=== PATIENT | male | born 2000 | race Caucasian/White ===

== ENCOUNTER 2019-09-28 14:59 | Inpatient (IN) ==
[2019-09-28 16:54] LABS: Basophils # (auto) 0.01 K/uL (0-0.2); Basophils % (auto) 0.1 %; Eosinophils # (auto) 0.11 K/uL (0-0.5); Eosinophils % (auto) 1.5 %; Hematocrit (blood only) 45.6 % (42-52); Hemoglobin 15.8 g/dL (14.0-18.0); Immature Granulocytes # (auto) 0.01 K/uL (0.00-0.02); Immature Granulocytes % (auto) 0.1 %; Lymphocytes # (auto) 2.27 K/uL (1.2-3.4); Lymphocytes % (auto) 30.8 %; Mean Corpuscular Hgb Conc 34.6 g/dL (32-36); Mean Corpuscular Volume 89.4 fL (80-100); Mean Platelet Volume 9.7 fL (7.4-10.4); Monocytes # (auto) 0.49 K/uL (0.11-0.59); Monocytes % (auto) 6.6 %; Neutrophils # (auto) 4.48 K/uL (1.4-6.5); Neutrophils % (auto) 60.9 %; Platelet Count 236 K/uL (130-400); RDW Coefficient of Variation 12.9 % (11.5-14.5); RDW Standard Deviation 42.4 fL (36.4-46.3); White Blood Count 7.37 K/uL (4.8-10.8)
[2019-09-28 17:12] LABS: Albumin Level 4.3 gm/dl (3.4-5.0); BUN Creatinine Ratio 17.4 (10-20); Calcium 9.5 mg/dl (8.5-10.1); Creatinine Clr Calc Pharmacy 97.6 ml/min; Est GFR (African American) 118.4; Est GFR (Non-African American) 102.2
[2019-09-28 17:22] LABS: Acetaminophen < 2 ug/ml (10-30); Albumin Globulin Ratio 1.3 (0.9-2); Bilirubin,Total 0.7 mg/dl (0.2-1); Globulin 3.4 gm/dl (2.5-4.0); Salicylate 2.3 mg/dl (2.8-20); Thyroid Stimulating Hormone 0.915 uIu/ml (0.300-4.500); Total Protein 7.7 gm/dl (6.4-8.2)
[2019-09-28 17:48] LABS: Appearance Urine Clear (Clear); Bilirubin Urine Negative (Negative); Blood Urine Negative (Negative); Color Urine Yellow; Glucose Urine UA Negative (Negative); Ketones Urine 2+ (Negative); Leukocyte Esterase Urine Negative (Negative); Nitrite Urine Negative (Negative); Protein Urine Negative (Negative); Urobilinogen Urine Negative (Negative); pH Urine 6.5 (4.5-7.5)
[2019-09-28 18:25] LABS: Amphetamines+Metham, Urine Neg (Neg); Barbiturates, Urine Neg (Neg); Benzodiazepine, Urine Neg (Neg); Cocaine, Urine Neg (Neg); MDMA (Ecstacy), Urine Neg (Neg); Methadone, Urine Neg (Neg); Opiate, Urine Neg (Neg); Phencyclidine, Urine Neg (Neg)
[2019-09-28] MEDS ORDERED: HYOSCYAMINE SULFATE 0.125 MG TAB PO STA (20:17)
--- NOTE | 2019-09-28 20:33 | Emergency Department Note ---
Entered by Shanell Soria acting as a scribe for History of Present Illness General Chief complaint: Mental Health Evaluation Stated complaint: ANXIETY,SCHIZOPHRENIA SYMPTOMS Time Seen by Provider: 09/28/19 15:17 Source: patient Mode of arrival: ambulatory Limitations: no limitations History of Present Illness Provider complaint: Mental health evaluation Onset (ago): day(s) (this week) Location: head Pain Consistency: + other (worsening) Maximum Pain Intensity: 0 Quality: + other (depression) Associated symptoms: + loss of appetite and + other (Additional symptoms: dehy dration, poor sleep, abdominal pain secondary to IBS) Treatments prior to arrival: none The patient is a 19 year old male with a history of IBS and depression who presents to the Emergency Room with complaints of worsening depression starting this week. The patient reports that his girlfriend's sister had a schizophrenic episode this past weekend, so he brought her to the ED. He states that many of her symptoms reflected his own and made him think about his own psychological problems. He notes that he subsequently went to [facility] because he w anted to talk to someone, and he indicates that they were adamant that he come to the ED for further evaluation. The patient currently complains of having a poor appetite, dehydration, and poor sleep secondary to nightmares. He mentions that he has tried smoking marijuana and using CBD to help him sleep. He adds that he often smokes marijuana wrapped in tobacco, vapes, and occasionally uses acid to calm himself down. He recalls that he last used acid several months ago. The patient also reports that his stomach sometimes becomes upset secondary to his IBS and that he experienced an infection after he had cysts removed from his face. He otherwise denies any recent sickness and injuries. He states that he does not use any regular medications. Home Medications Home Medications Medication Instructions Recorded Confirmed Type dicyclomine 10 mg PO QID 05/28/18 09/28/19 History hyoscyamine sulfate 0.125 mg PO BID PRN 05/28/18 09/28/19 History famotidine 20 mg PO DAILY 09/28/19 09/28/19 History Allergies Allergy/AdvReac Type Severity Reaction Status Date / Time pickle Allergy Swelling Uncoded 09/28/19 17:24 of Lip/Tongue/Throat Past Med/Surg History Medical History Depression (Acute) Head injury (Inactive) IBS (irritable bowel syndrome) Laceration of scalp (Inactive) No acute medical problems Social History Preferred Language: Upper Sorbian Communication Ability: Effective Beliefs That Will Affect Care: None current occupational status: student Feels Safe at Home: Yes Smoking Status: Current every day smoker Hx Alcohol Use: Yes Review of Systems See HPI for pertinent positives & negatives. and A total of 10 systems reviewed and were otherwise negative Physical Exam Vital Signs Vital Signs - 24 hr 09/28/19 15:02 09/28/19 17:00 09/28/19 20:30 Temperature 97.7 F Temperature Source Oral Pulse Rate 65 Pulse Rate [Radial] 77 82 Pulse Rhythm [Radial] Regular Regular Respiratory Rate 18 16 20 Respiratory Effort / Characteristics Non-Labored Spontaneous Non-Labored Spontaneous Non-Labored Respiratory Depth Normal Normal Normal Respiratory Pattern Regular Regular Regular Blood Pressure 149/93 H Blood Pressure [Right Arm] 114/81 134/85 Blood Pressure Mean 111 Blood Pressure Mean [Right Arm] 92 101 Blood Pressure Position Sitting Pulse Oximetry 96 98 98 Oxygen Delivery Method Room Air Room Air Room Air Sepsis Recent Fever Within 48 Hours No Sepsis New/Unexplained Change in Mental Status No Sepsis Action Taken by Nursing No Action Required GENERAL: alert, well nourished, non-toxic, anxious and tearful EYE EXAM: normal conjunctiva, PERRL and EOM's grossly intact OROPHARYNX: no exudate, no erythema, lips, buccal mucosa, and tongue normal and mucous membranes are moist NECK: supple, no nuchal rigidity, no adenopathy, non-tender LUNGS: Clear to auscultation. Normal chest wall mechanics HEART: no murmurs, S1 normal and S2 normal ABDOMEN: abdomen soft, non-tender, normo-active bowel sounds, no masses, no rebound or guarding. BACK: Back is symmetrical on inspection and there is no deformity, no midline tenderness, no CVA tenderness. SKIN: no rashes and no bruising UPPER EXTREMITIES: upper extremities are grossly normal. FROM, nml pulses b/l. LOWER EXTREMITIES: No pitting edema. FROM, nml pulses b/l. NEURO EXAM: Normal sensorium, cranial nerves II-XII grossly intact, normal speech, no gross weakness of arms, no gross weakness of legs. No drift. Finger to nose intact. Gross sensation intact. Course Course 1523: The patient was evaluated in room A10, and a complete history and physical examination were performed. 2017: Patient seen and evaluated by psychiatric child welfare caseworker. 2220: I spoke to the child welfare caseworker and the patient has been accepted to [address] [place] [address]. 2236: I reevaluated the patient and he is now tearful and concerned about being admitted. Administered Medications Dicyclomine HCl (Bentyl) 10 mg PO QID [facility] Stop: 10/29/19 08:59 Last Admin: 09/30/19 21:23 Dose: 10 mg Documented by: [id number] Admin: 09/30/19 17:22 Dose: 10 mg Documented by: [id number] Admin: 09/30/19 13:23 Dose: 10 mg Documented by: [id number] Admin: 09/30/19 08:45 Dose: 10 mg Documented by: [id number] Admin: 09/29/19 21:10 Dose: 10 mg Documented by: [id number] Admin: 09/29/19 17:22 Dose: 10 mg Documented by: [id number] Admin: 09/29/19 12:46 Dose: 10 mg Documented by: [id number] Admin: 09/29/19 08:01 Dose: 10 mg Documented by: [id number] Famotidine (Pepcid) 20 mg PO QAM [facility] Stop: 10/29/19 08:59 Last Admin: 09/30/19 08:45 Dose: 20 mg Documented by: [id number] Admin: 09/29/19 08:01 Dose: 20 mg Documented by: [id number] Magnesium Hydroxide (Milk Of Magnesia) 30 ml PO DAILY PRN PRN Reason: Constipation Stop: 10/28/19 23:00 Last Admin: 09/28/19 23:52 Dose: 30 ml Documented by: [id number] Mirtazapine (Remeron) 15 mg PO HS [facility] Stop: 10/29/19 21:59 Last Admin: 09/30/19 21:22 Dose: 15 mg Documented by: [id number] Admin: 09/29/19 21:10 Dose: 15 mg Documented by: [id number] Nicotine Polacrilex (Nicorette 2mg) 2 piece MT PRN PRN PRN Reason: Cravings Stop: 10/29/19 18:06 Last Admin: 03/01/20 19:58 Dose: 2 piece Documented by: [id number] Admin: 09/30/19 15:34 Dose: 2 piece Documented by: [id number] Admin: 09/30/19 11:02 Dose: 2 piece Documented by: [id number] Admin: 09/29/19 21:11 Dose: 2 piece Documented by: [id number] Admin: 09/29/19 18:19 Dose: 2 piece Documented by: [id number] Discontinued Medications Hyoscyamine (Levsin) 0.125 mg PO NOW STA Stop: 09/28/19 20:18 Last Admin: 09/28/19 20:24 Dose: 0.125 mg Documented by: [id number] Medical Decision Making Differential Diagnosis Differential diagnosis: Etiologies such as mood disorder, infection, hypoglycemia, electrolyte abnormalities, cardiac sources, intracerebral event, toxicologic, neurologic, as well as others were entertained. Medical Records Attestation: I reviewed the patient's medical records. Home Medications Current Medication List: was personally reviewed by me Laboratory Data Attestation: I reviewed the patient's lab results. Result diagrams: 09/28/19 16:29 09/28/19 16:29 Lab Results 09/28/19 09/28/19 09/28/19 Range/Units 16:29 16:29 16:29 WBC 7.37 (4.8-10.8) K/uL RBC 5.10 (4.7-6.1) M/uL Hgb 15.8 (14.0-18.0) g/dL Hct 45.6 (42-52) % MCV 89.4 (80-100) fL MCH 31.0 (25-34) pg MCHC 34.6 (32-36) g/dL RDW Std Deviation 42.4 (36.4-46.3) fL RDW Coeff of Arjun 12.9 (11.5-14.5) % Plt Count 236 (130-400) K/uL MPV 9.7 (7.4-10.4) fL Immature Gran % (Auto) 0.1 % Neut % (Auto) 60.9 % Lymph % (Auto) 30.8 % Jackson % (Auto) 6.6 % Eos % (Auto) 1.5 % Baso % (Auto) 0.1 % Immature Gran # (Auto) 0.01 (0.00-0.02) K/uL Neut # (Auto) 4.48 (1.4-6.5) K/uL Lymph # (Auto) 2.27 (1.2-3.4) K/uL Jackson # (Auto) 0.49 (0.11-0.59) K/uL Eos # (Auto) 0.11 (0-0.5) K/uL Baso # (Auto) 0.01 (0-0.2) K/uL Sodium 139 (136-145) mmol/L Potassium 4.0 (3.5-5.1) mmol/L Chloride 105 (98-107) mmol/L Carbon Dioxide 30 (21-32) mmol/L Anion Gap 5.0 (3-11) BUN 18 (7-18) mg/dl Creatinine 1.04 (0.6-1.4) mg/dl Est Cr Clr Drug Dosing 97.6 ml/min Est GFR ( Amer) 118.4 Est GFR (Non-Af Amer) 102.2 BUN/Creatinine Ratio 17.4 (10-20) Glucose 123 H (70-99) mg/dl Calcium 9.5 (8.5-10.1) mg/dl Total Bilirubin 0.7 (0.2-1) mg/dl AST 13 L (15-37) U/L ALT 17 (12-78) U/L Alkaline Phosphatase 54 (45-117) U/L Total Protein 7.7 (6.4-8.2) gm/dl Albumin 4.3 (3.4-5.0) gm/dl Globulin 3.4 (2.5-4.0) gm/dl Albumin/Globulin Ratio 1.3 (0.9-2) TSH 0.915 (0.300-4.500) uIu/ml Urine Color Urine Appearance (Clear) Urine pH (4.5-7.5) Ur Specific [place] (1.000-1.030) Urine Protein (Negative) Urine Glucose (UA) (Negative) Urine Ketones (Negative) Urine Blood (Negative) Urine Nitrite (Negative) Urine Bilirubin (Negative) Urine Urobilinogen (Negative) Ur Leukocyte Esterase (Negative) Salicylates 2.3 L (2.8-20) mg/dl Urine Opiates Screen (Neg) Ur Methadone, Qual (Neg) Acetaminophen < 2 L (10-30) ug/ml Urine Barbiturates (Neg) Ur Phencyclidine (PCP) (Neg) U Amphetamin/Meth Scrn (Neg) MDMA (Ecstasy) Screen (Neg) U Benzodiazepines Scrn (Neg) Ur Cocaine Metabolite (Neg) U Marijuana (THC) Screen (Neg) U Marijuana THC Carboxy (<5) ng/mL Drug Screen Comment Ethyl Alcohol mg/dL (0-3) mg/dl 09/28/19 09/28/19 09/28/19 Range/Units 16:29 17:18 17:18 WBC (4.8-10.8) K/uL RBC (4.7-6.1) M/uL Hgb (14.0-18.0) g/dL Hct (42-52) % MCV (80-100) fL MCH (25-34) pg MCHC (32-36) g/dL RDW Std Deviation (36.4-46.3) fL RDW Coeff of Arjun (11.5-14.5) % Plt Count (130-400) K/uL MPV (7.4-10.4) fL Immature Gran % (Auto) % Neut % (Auto) % Lymph % (Auto) % Jackson % (Auto) % Eos % (Auto) % Baso % (Auto) % Immature Gran # (Auto) (0.00-0.02) K/uL Neut # (Auto) (1.4-6.5) K/uL Lymph # (Auto) (1.2-3.4) K/uL Jackson # (Auto) (0.11-0.59) K/uL Eos # (Auto) (0-0.5) K/uL Baso # (Auto) (0-0.2) K/uL Sodium (136-145) mmol/L Potassium (3.5-5.1) mmol/L Chloride (98-107) mmol/L Carbon Dioxide (21-32) mmol/L Anion Gap (3-11) BUN (7-18) mg/dl Creatinine (0.6-1.4) mg/dl Est Cr Clr Drug Dosing ml/min Est GFR ( Amer) Est GFR (Non-Af Amer) BUN/Creatinine Ratio (10-20) Glucose (70-99) mg/dl Calcium (8.5-10.1) mg/dl Total Bilirubin (0.2-1) mg/dl AST (15-37) U/L ALT (12-78) U/L Alkaline Phosphatase (45-117) U/L Total Protein (6.4-8.2) gm/dl Albumin (3.4-5.0) gm/dl Globulin (2.5-4.0) gm/dl Albumin/Globulin Ratio (0.9-2) TSH (0.300-4.500) uIu/ml Urine Color Yellow Urine Appearance Clear (Clear) Urine pH 6.5 (4.5-7.5) Ur Specific [place] 1.030 (1.000-1.030) Urine Protein Negative (Negative) Urine Glucose (UA) Negative (Negative) Urine Ketones 2+ H (Negative) Urine Blood Negative (Negative) Urine Nitrite Negative (Negative) Urine Bilirubin Negative (Negative) Urine Urobilinogen Negative (Negative) Ur Leukocyte Esterase Negative (Negative) Salicylates (2.8-20) mg/dl Urine Opiates Screen Neg (Neg) Ur Methadone, Qual Neg (Neg) Acetaminophen (10-30) ug/ml Urine Barbiturates Neg (Neg) Ur Phencyclidine (PCP) Neg (Neg) U Amphetamin/Meth Scrn Neg (Neg) MDMA (Ecstasy) Screen Neg (Neg) U Benzodiazepines Scrn Neg (Neg) Ur Cocaine Metabolite Neg (Neg) U Marijuana (THC) Screen Pos H (Neg) U Marijuana THC Carboxy (<5) ng/mL Drug Screen Comment Ethyl Alcohol mg/dL < 3.0 (0-3) mg/dl 09/28/19 Range/Units 17:18 WBC (4.8-10.8) K/uL RBC (4.7-6.1) M/uL Hgb (14.0-18.0) g/dL Hct (42-52) % MCV (80-100) fL MCH (25-34) pg MCHC (32-36) g/dL RDW Std Deviation (36.4-46.3) fL RDW Coeff of Arjun (11.5-14.5) % Plt Count (130-400) K/uL MPV (7.4-10.4) fL Immature Gran % (Auto) % Neut % (Auto) % Lymph % (Auto) % Jackson % (Auto) % Eos % (Auto) % Baso % (Auto) % Immature Gran # (Auto) (0.00-0.02) K/uL Neut # (Auto) (1.4-6.5) K/uL Lymph # (Auto) (1.2-3.4) K/uL Jackson # (Auto) (0.11-0.59) K/uL Eos # (Auto) (0-0.5) K/uL Baso # (Auto) (0-0.2) K/uL Sodium (136-145) mmol/L Potassium (3.5-5.1) mmol/L Chloride (98-107) mmol/L Carbon Dioxide (21-32) mmol/L Anion Gap (3-11) BUN (7-18) mg/dl Creatinine (0.6-1.4) mg/dl Est Cr Clr Drug Dosing ml/min Est GFR ( Amer) Est GFR (Non-Af Amer) BUN/Creatinine Ratio (10-20) Glucose (70-99) mg/dl Calcium (8.5-10.1) mg/dl Total Bilirubin (0.2-1) mg/dl AST (15-37) U/L ALT (12-78) U/L Alkaline Phosphatase (45-117) U/L Total Protein (6.4-8.2) gm/dl Albumin (3.4-5.0) gm/dl Globulin (2.5-4.0) gm/dl Albumin/Globulin Ratio (0.9-2) TSH (0.300-4.500) uIu/ml Urine Color Urine Appearance (Clear) Urine pH (4.5-7.5) Ur Specific [place] (1.000-1.030) Urine Protein (Negative) Urine Glucose (UA) (Negative) Urine Ketones (Negative) Urine Blood (Negative) Urine Nitrite (Negative) Urine Bilirubin (Negative) Urine Urobilinogen (Negative) Ur Leukocyte Esterase (Negative) Salicylates (2.8-20) mg/dl Urine Opiates Screen (Neg) Ur Methadone, Qual (Neg) Acetaminophen (10-30) ug/ml Urine Barbiturates (Neg) Ur Phencyclidine (PCP) (Neg) U Amphetamin/Meth Scrn (Neg) MDMA (Ecstasy) Screen (Neg) U Benzodiazepines Scrn (Neg) Ur Cocaine Metabolite (Neg) U Marijuana (THC) Screen (Neg) U Marijuana THC Carboxy 1730 H (<5) ng/mL Drug Screen Comment SEE NOTE Ethyl Alcohol mg/dL (0-3) mg/dl Blood Pressure Blood Pressure Findings: Elevated blood pressure Blood Pressure Disposition: Referred to patients primary care provider MDM Narrative Pt here tearful with hx of depression/anxiety and substance abuse. Pt with passive SI. No outpatient treatment yet. Pt uses drugs to help with coping and stress. I feel pt would benefit from inpatient treatment. Pt was hesitant but ultimately agreeable. Patient's other labs reassuring, patient was h emodynamically stable throughout. 201 signed. Impression & Plan Depression, Hallucinations, Substance abuse, Anxiety Discharge Plan Visit Data *Final* Discharge Date/Time: 09/28/19 22:51 Chief Complaint: Mental Health Evaluation Stated Complaint: ANXIETY,SCHIZOPHRENIA SYMPTOMS ED Provider: Carmelina Regalado Discharge Problem: Depression, Hallucinations, Substance abuse, Anxiety Patient Disposition: Admitted As Inpatient Discharge Instructions Interventions: ED Discharge Assessment Last Done: 09/28/19 22:51 Discharge Problem: Depression Qualifiers: Depression Type: major depressive disorder Major depression recurrence: recurrent Active/Remission status: currently active Major depression episode severity: severe Psychotic features: with psychotic features Qualified Code(s): F33.3 - Major depressive disorder, recurrent, severe with psychotic symptoms The yousufibe's documentation has been prepared under my direction and personally reviewed by me in its entirety. I confirm that the note above accurately r eflects all work, treatment, procedures, and medical decision making performed by me.
[2019-09-28] MEDS ORDERED: SODIUM CHLORIDE 0.65% NA SOLN 45 ML (OCEAN) PRN (23:01)
[2019-09-28] MEDS ORDERED: MAGNESIUM HYDROXIDE SUSP 30 ML UDC PO PRN (23:01)
[2019-09-28] MEDS ORDERED: BISMUTH SUBSALICYLATE PER ML OMNICELL CHARGE PO PRN (23:01)
[2019-09-28] MEDS ORDERED: ACETAMINOPHEN 325 MG TAB PO PRN (23:01)
[2019-09-28] MEDS ORDERED: ALUMINUM/MAGNESIUM SUSP 30 ML UDC PO PRN (23:01)
[2019-09-28] MEDS ORDERED: HYOSCYAMINE SULFATE 0.125 MG TAB PO PRN (23:04)
[2019-09-29] MEDS: DICYCLOMINE HCL 10 MG CAP PO SCH ×4 (08:01→21:10)
[2019-09-29] MEDS: FAMOTIDINE 20 MG TAB PO SCH (08:01)
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
[2019-09-29] MEDS ORDERED: MELATONIN 5 MG PO PRN (17:48)
[2019-09-29] MEDS: NICOTINE POLACRILEX 2 MG GUM MT PRN ×2 (18:19→21:11)
[2019-09-29] MEDS: MIRTAZAPINE TAB 15 MG TAB PO SCH (21:10)
[2019-09-30] MEDS: FAMOTIDINE 20 MG TAB PO SCH (08:45)
[2019-09-30] MEDS: DICYCLOMINE HCL 10 MG CAP PO SCH ×4 (08:45→21:23)
--- NOTE | 2019-09-30 09:26 | Psychiatric Progress Note ---
Date of Service September 30, 2019 Impression / Recommendations Impression 19 yo male presents with reports depression superimposed on longstanding PTSD related symptoms, self medication with MJ, culminating in psychotic symptoms (ego syntonic command mcallister). History does not support bipolar disorder at this time and unclear how much of psychosis is mood vs. substance induced. (1) Depression: The patient was admitted to the [facility] ([facility] health unit) on q15 min checks (behavioral with suicide precautions) for safety. The patient will participate in group, recreational, and milieu therapies and will be offered additional individual and family sessions as clinically appropriate. Not actively hallucinating and no major thought disorder so will focus on antidepressant rather than atypical. Risks/benefits/alternatives reviewed re: Remeron 15 mg po qhs as side effect profile of improved appetite and sleep is desirable for this patient and less likely to cause GI upset than SSRI. Discussion included but was not limited to FDA warnings re: SI. 09/29--continue Remeron trial. (2) Post traumatic stress disorder (PTSD): will establish outpatient therapy plan for longer term, monitor for dissociation on unit, Remeron as above. (3) Cannabis abuse: Extensive discussion about the problematic nature of his MJ use. Brief intervention was offered and accepted. Intervention was greater than 5 min in length and included assessing readiness to quit, advice on how to reduce or abstain from MJl, and to set a specific goal for this hospitalization. ornamental bronze worker will also assist in anticipating barriers to sobriety and in problem- solving for solutions to those problems while arranging for referral to appropriate treatment. The patient is in contemplation stage with regards to transtheoretical model of change and voices willingness to quit or cut back significantly on his use. The patient is advised to decrease MJ consumption due to hallucinations, risk of interaction with prescription medications, and possible exacerbations of his GI issues. The patient will be provided with recovery materials to continue to educate self on how to cope with their condition. (4) IBS (irritable bowel syndrome): continue home meds, avoiding vistaril and trazadone in combo as anticholintergic. Inventory Assets Strengths: intelligent, identifies multiple friendships, amenable to therapy Needs: abstain from MJ Risk Factors Assessment Male: Yes : Yes Do You Have Access To A Gun?: No Health Problems: Yes Substance Use Disorders: Yes Previous Attempt: Yes Protective Factors Assessment Employed: No Stable Relationships: Yes Supportive Family: No Interval History Identifying Information 19 yo male, [employer] student referred from [facility] urgent, admit 201 for intermittent auditory command mcallister. Chief Complaint "I initially had some anxiety about side effects this am but now I feel great". Review of Systems Sleep Information Total Hours of Sleep: 6.75 Meal Information Percent Meal Consumed - Breakfast: 75 Percent Meal Consumed - Lunch: 100 Percent Meal Consumed - Dinner: 100 Subjective Subjective Patient was seen & assessed and interval progress reviewed with nursing and social work. his 72 hour notice (signed soon after admission) remains in place, he understands current treatment recs and agrees to remain in hospital for ano ther night so follow up can be arranged and for additional monitoring of condition and med trial. His girlfriend and local friend to be involved in safety planning. Slept "the best I have in a long time" with Remeron. Woke up hungry. At first he felt a "little out of it and that scared me" but fully resolve within 1 hour. bP historically bumps if nervous. Physical Exam Psychiatric Orientation: alert and oriented x 3 Apperance: appropriately dressed and appropriately groomed Eye Contact: good eye contact Motor Behavior: steady gait and station and no abnormal motor movements Speech: normal rate/rhythm/volume of speech Affect: euthymic affect Thought Process: + circumstantial thought process Thought Content: reality based without delusions Suicidal Thoughts: denies suicidal thoughts Homicidal Thoughts: denies homicidal thoughts Hallucinations: no auditory hallucinations and no visual hallucinations Cognition: attention grossly intact and language grossly intact Estimated Intelligence: consistent with education level Insight: + limited insight Judgement: + limited judgement Vital Signs (Past 24 Hours) Last Vital Signs Temp 36.4 C L 09/30/19 06:00 Pulse 54 L 09/30/19 06:00 Resp 16 09/30/19 06:00 BP 112/70 09/30/19 06:00 Pulse Ox 98 09/28/19 23:08 Results & Data ([facility]) Current Inpatient Medications Current Inpatient Medications: Current Inpatient Medications Acetaminophen (Tylenol) 650 mg PO Q4H PRN PRN Reason: Headache or Minor Fever Stop: 10/28/19 23:00 Al Hydrox/Mg Hydrox/Simethicone (Maalox) 30 ml PO Q4H PRN PRN Reason: GI Upset Stop: 10/28/19 23:00 Bismuth Subsalicylate (Kaopectate) 15 ml PO PRN PRN PRN Reason: Loose Stool Stop: 10/28/19 23:00 Dicyclomine HCl (Bentyl) 10 mg PO QID [facility] Stop: 10/29/19 08:59 Last Admin: 09/30/19 08:45 Dose: 10 mg Documented by: Famotidine (Pepcid) 20 mg PO QAM [facility] Stop: 10/29/19 08:59 Last Admin: 09/30/19 08:45 Dose: 20 mg Documented by: Hyoscyamine (Levsin) 0.125 mg PO BID PRN PRN Reason: Abdominal discomfort Stop: 10/28/19 23:03 Magnesium Hydroxide (Milk Of Magnesia) 30 ml PO DAILY PRN PRN Reason: Constipation Stop: 10/28/19 23:00 Last Admin: 09/28/19 23:52 Dose: 30 ml Documented by: Melatonin (Melatonin) 1 ea PO HS PRN PRN Reason: Sleep Stop: 10/29/19 17:47 Mirtazapine (Remeron) 15 mg PO HS [facility] Stop: 10/29/19 21:59 Last Admin: 09/29/19 21:10 Dose: 15 mg Documented by: Nicotine Polacrilex (Nicorette 2mg) 2 piece MT PRN PRN PRN Reason: Cravings Stop: 10/29/19 18:06 Last Admin: 09/29/19 21:11 Dose: 2 piece Documented by: Sodium Chloride ([place] Nasal) 1 - 2 sprays NA PRN PRN PRN Reason: Nasal Dryness/Congestion Stop: 10/28/19 23:00 Mental Health & Subst Abuse Tx Therapist Name of Therapist: none Social Sciences Instructor Name of Social Sciences Instructor: none Post Discharge Appointments Primary Care Physician Name Of Family Doctor: [facility] (1) Depression Active/Remission status: currently active Depression Type: major depressive disorder Major depression episode severity: severe Major depression recurrence: recurrent Psychotic features: with psychotic features Qualified Code(s): F33.3 - Major depressive disorder, recurrent, severe with psychotic symptoms
[2019-09-30] MEDS: NICOTINE POLACRILEX 2 MG GUM MT PRN ×3 (11:02→19:58)
[2019-09-30] MEDS: MIRTAZAPINE TAB 15 MG TAB PO SCH (21:22)
[2019-09-30 23:40] LABS: Marijuana Quant, GCMS Urine 1730 ng/mL (<5)
[2019-10-01] MEDS: FAMOTIDINE 20 MG TAB PO SCH (08:00)
[2019-10-01] MEDS: DICYCLOMINE HCL 10 MG CAP PO SCH ×2 (08:00→12:41)
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
[2019-10-01] MEDS: NICOTINE POLACRILEX 2 MG GUM MT PRN (10:32)
== END 2019-10-01 12:45 | disposition home or self-care (01) | DRG 885 ==
LOC: ED 14:59 → 3S 22:02